=== PATIENT | male | born 1955 | race Caucasian/White ===

== ENCOUNTER 2018-04-21 00:31 | Emergency (ER) | payer MEDICARE, MEDICAID ==
[~2018-04-21] VITALS: Ht 165.1 cm; Wt 72.7 kg
[2018-04-21] MEDS ORDERED: NITROSTAT0.4 M1 SL (01:56)
[2018-04-21] MEDS ORDERED: ACETAMINOPHEN325 M1 PO (01:57)
[2018-04-21] MEDS ORDERED: DILANTIN 100MG100 MG PO (01:58)
[2018-04-21] MEDS ORDERED: NAMZARIC 28 MG1 EACH PO (02:00)
[2018-04-21] MEDS ORDERED: ULTRAM50 M1 PO (02:00)
[2018-04-21] MEDS ORDERED: LEXAPRO20 M1 PO (02:00)
[2018-04-21] MEDS ORDERED: NEURONTIN100 M1 PO (02:00)
[2018-04-21] MEDS ORDERED: FOLIC ACID1 MG PO (02:01)
[2018-04-21] MEDS ORDERED: BALANCE B-1001 TAB PO (02:01)
[2018-04-21] MEDS ORDERED: ABILIFY 15MG TA15 MG PO (02:01)
[2018-04-21] MEDS ORDERED: ADULT ASPIRIN R81 MG PO (02:02)
[2018-04-21] MEDS ORDERED: METOPROLOL SUCC25 M1 PO (02:02)
[2018-04-21] MEDS ORDERED: OMEPRAZOLE40 MG PO (02:02)
[2018-04-21] MEDS ORDERED: IBU400 MG PO (02:03)
[2018-04-21] MEDS ORDERED: CARAFATE1 GM/10 M1 PO (02:03)
[2018-04-21 04:16] VITALS: BP 123/74
== END 2018-04-21 04:16 | disposition home or self-care (01) ==
LOC: ED 00:31
DX: S01.01XA Laceration without foreign body of scalp, initial encounter (principal); F10.220 Alcohol dependence with intoxication, uncomplicated; F03.90 Unspecified dementia, unspecified severity, without behavioral disturbance, psychotic disturbance, mood disturbance, and anxiety; I25.10 Atherosclerotic heart disease of native coronary artery without angina pectoris; G40.909 Epilepsy, unspecified, not intractable, without status epilepticus; W06.XXXA Fall from bed, initial encounter; Y92.122 Bedroom in nursing home as the place of occurrence of the external cause; Z79.82 Long term (current) use of aspirin; Z79.899 Other long term (current) drug therapy
CPT/HCPCS: 90715